=== PATIENT | male | born 1955 | race Caucasian/White ===

== ENCOUNTER → 2021-07-22 14:47 | Outpatient (BNVA) | payer MEDICARE, SELFPAY | PROVIDERS: PCP Internal Medicine; Visit Provider Counselor Mental Health | DX: F43.20 Adjustment disorder, unspecified (principal) | CPT/HCPCS: 90837; 90834 ==

== ENCOUNTER → 2021-08-12 13:00 | Outpatient (BNVA) | payer MEDICARE, SELFPAY | PROVIDERS: PCP Internal Medicine; Visit Provider Counselor Mental Health | DX: F43.20 Adjustment disorder, unspecified (principal) | CPT/HCPCS: 90834 ==

== ENCOUNTER → 2021-08-21 09:36 | Outpatient (BNVA) | payer MEDICARE, SELFPAY | PROVIDERS: PCP Internal Medicine; Visit Provider Counselor Mental Health | DX: F43.20 Adjustment disorder, unspecified (principal) | CPT/HCPCS: 90834 ==

== ENCOUNTER 2021-08-27 15:40 | Outpatient (CLI) | payer MEDICARE, SELFPAY ==
--- NOTE | 2021-08-27 19:28 | ECG_ITS ---
[facility] Test Date: 2021-08-27 Pat Name: Jozef Brambila Department: Room: Gender: Male Teaching Young: : 1955 Requested By: Jade Arias Order Number: [id number] Juan Pablo MD: Brennan Núñez M.D. Measurements Intervals [place] Rate: 74 P: 50 MN: 136 QRS: 20 QRSD: 82 T: 44 QT: 351 QTc: 391 Interpretive Statements SINUS RHYTHM No previous ECG available for comparison Electronically Signed On 08-28-2021 22:32:21 CDT by Brennan Núñez M.D. [id number]
== END 2021-08-27 15:41 | disposition home or self-care (01) ==
LOC: RAD 15:44
PROVIDERS: PCP Internal Medicine; Visit Provider Internal Medicine
DX: R00.2 Palpitations (principal)
CPT/HCPCS: 93005

== ENCOUNTER → 2021-09-05 13:42 | Outpatient (BNVA) | payer MEDICARE, SELFPAY | PROVIDERS: PCP Internal Medicine; Visit Provider Internal Medicine Cardiovascular Disease | DX: R00.2 Palpitations (principal); R00.0 Tachycardia, unspecified; I49.3 Ventricular premature depolarization | CPT/HCPCS: 93242 ==

== ENCOUNTER → 2023-01-30 14:21 | Outpatient (BNVA) | payer OTHER, SELFPAY | PROVIDERS: PCP Family Medicine; Visit Provider Family Medicine | DX: I10 Essential (primary) hypertension (principal); R30.0 Dysuria; Z12.5 Encounter for screening for malignant neoplasm of prostate; Z12.11 Encounter for screening for malignant neoplasm of colon; F41.9 Anxiety disorder, unspecified; F32.0 Major depressive disorder, single episode, mild; H02.883 Meibomian gland dysfunction of right eye, unspecified eyelid; K57.90 Diverticulosis of intestine, part unspecified, without perforation or abscess without bleeding | CPT/HCPCS: 80053; 80061; 81000; 84153; 84439; 84443; 85025 ==

== ENCOUNTER 2023-04-17 06:21 | Day surgery (SDC) | payer MEDICARE, SELFPAY ==
[2023-04-17] VITALS (7 sets, daily range): BP systolic 156–187; BP diastolic 98–110; PULSE 65–99; RESP 16–18; TEMP 36.1–36.3; O2SAT 94–98; BMI 27.1
[2023-04-17] MEDS: sodium chloride 0.9% 1,000 ML 30 ML IV (06:47)
--- NOTE | 2023-04-17 07:25 | ANES.PREANE2 ---
Pre-Anesthetic Assessment Height/Weight: Height 1.75 m Weight 83.461 kg Temp Pulse Resp BP Pulse Ox O2 Del Method 97.3 F L 97 16 156/102 98 Room Air 04/17/23 06:38 04/17/23 06:38 04/17/23 06:38 04/17/23 06:38 04/17/23 06:38 04/17/23 06:38 Preop Diagnosis: screening Operation Date: 04/17/23 07:30 Proposed Procedures p [id number] colon, G0121 screen colon A risk Z12.11(Not Applicable) - Barrett Rendon DO Familial anesthetic complications: none Was Beta Óscar taken within 24 hours: N/A Was Clonidine taken within 24 hours: N/A Last intake: Intake Last Liquid Date 04/16/23 Last Liquid Time 23:00 Last Solid Date 04/15/23 Last Solid Time 11:00 Social No alcohol and No tobacco Exam alert, oriented x 3, clear to auscultation bilaterally and regular rate & rhythm Airway Submandibular: within normal limits Cervical ROM: within normal limits Mallampati: Class I Dentition: full Pulmonary None reported CV/HEM None reported None reported Hepatic None reported GI Gastroesophageal Reflux Disease (controlled) Metabolic None reported Musc/skel None reported Neuropsych Anxiety Anesthetic Plan ASA status: 2 Anesthesia: MAC Risk of > 500 ml blood loss (7ml/kg in children): No Medications/Allergies Home Medications Medication Instructions Recorded Confirmed Last Taken Type difluprednate 0.05 % eye drops 1 drp ophthalmic (eye) BID #5 mL 03/14/21 04/15/23 04/14/23 Rx (Durezol) hydrocortisone-pramoxine 2.5 %-1 % 1 applic topical DAILY PRN 08/12/21 04/15/23 Unknown Rx (4g) rectal cream hemorrhoids #4 grams clobetasol 0.05 % topical cream 1 applic topical DAILY #30 grams 03/13/22 04/15/23 Unknown Rx tobramycin 0.3 %-dexamethasone 0.1 1 drp ophthalmic (eye) QID #5 mL 03/06/23 04/15/23 03/25/23 Rx % eye drops,suspension peg 3350-electrolytes 236 240 ml PO Q10M #4,000 mL 04/06/23 04/15/23 Unknown Rx gram-22.74 gram-6.74 gram-5.86 gram solution (Golytely) zolpidem 10 mg tablet (Ambien) 10 mg PO ONCE #30 tabs 04/08/23 04/15/23 04/13/23 Rx alprazolam 1 mg tablet 1 mg PO QID PRN anxiety #120 tabs 04/09/23 04/17/23 04/17/23 Rx Allergies Allergy/AdvReac Type Severity Reaction Status Date / Time neomycin Allergy Intermediate unknown Verified 02/04/23 14:42 Current Medications Generic Name Dose Route Start Last Admin Trade Name Freq PRN Reason Stop Dose Admin Sodium Chloride 1,000 mls @ 30 mls/hr 04/17/23 06:30 04/17/23 06:47 Sodium Chloride 0.9% IV 04/18/23 06:29 30 mls/hr .Q24H ELVIE Administration PFSH Anesthesia Medical History Cataract Diverticulitis Diverticulosis MGD (meibomian gland disease) Surgical History History of tonsillectomy Hx of inguinal hernia surgery Family History Brother Cancer prostate Other Hyperlipidemia Lung disease Denies family history of Diabetes CAD (coronary artery disease) Clotting disorder Dementia Psychiatric illness Chronic kidney disease (CKD) Anesthesia complication Bleeding disorder Hypertension Stroke Social History Smoking and tobacco/nicotine status: never used tobacco/nicotine Alcohol intake: current Alcohol intake frequency: holidays/special occasions only Substance/Drug Use: never Lives independently: Yes Marital status: / service: No Current occupational status: employed Current occupation: Pharmacist Special jacky needs: No Agree to transfusion: Yes Data Anesthesia Cardiac Studies: Holter Monitor 09/05/21
--- NOTE | 2023-04-17 07:26 | P.HP_ITS ---
Providers/Chief Complaint Primary Care Provider: Bryn Hobbs MD Chief Complaint: Z12.11 History of Present Illness Jozef Díaz is a 68 year old male Review of Systems General: Reports: 10 or more systems reviewed and unremarkable except in HPI and below Medications/Allergies Home Medications Medication Instructions Recorded Confirmed Last Taken Type difluprednate 0.05 % eye drops 1 drp ophthalmic (eye) BID #5 mL 03/14/21 04/15/23 04/14/23 Rx (Durezol) hydrocortisone-pramoxine 2.5 %-1 % 1 applic topical DAILY PRN 08/12/21 04/15/23 Unknown Rx (4g) rectal cream hemorrhoids #4 grams clobetasol 0.05 % topical cream 1 applic topical DAILY #30 grams 03/13/22 1 06/16/22 Unknown Rx tobramycin 0.3 %-dexamethasone 0.1 1 drp ophthalmic (eye) QID #5 mL 03/06/23 04/15/23 03/25/23 Rx % eye drops,suspension peg 3350-electrolytes 236 240 ml PO Q10M #4,000 mL 04/06/23 04/15/23 Unknown Rx gram-22.74 gram-6.74 gram-5.86 gram solution (Golytely) zolpidem 10 mg tablet (Ambien) 10 mg PO ONCE #30 tabs 04/08/23 04/15/23 04/13/23 Rx alprazolam 1 mg tablet 1 mg PO QID PRN anxiety #120 tabs 04/09/23 04/17/23 04/17/23 Rx Allergies Allergy/AdvReac Type Severity Reaction Status Date / Time neomycin Allergy Intermediate unknown Verified 02/04/23 14:42 PFSH Acute PFSH: Medical History (Updated 04/08/23 @ 19:48 by Bryn Hobbs MD) Diverticulitis Cataract Diverticulosis MGD (meibomian gland disease) Surgical History (Updated 04/17/23 @ 07:26 by Barrett Rendon DO) Hx of colonoscopy 2016, 1 benign polyp History of tonsillectomy Hx of inguinal hernia surgery Family History Brother Cancer prostate Other Hyperlipidemia Lung disease Denies family history of Diabetes CAD (coronary artery disease) Clotting disorder Dementia Psychiatric illness Chronic kidney disease (CKD) Anesthesia complication Bleeding disorder Hypertension Stroke Social History Smoking and tobacco/nicotine status: never used tobacco/nicotine Alcohol intake: current Alcohol intake frequency: holidays/special occasions only Substance/Drug Use: never Lives independently: Yes Marital status: / service: No Current occupational status: employed Current occupation: Pharmacist Special jacky needs: No Agree to transfusion: Yes Vitals/I&O/Wt Last Vital Signs Temp 97.3 F L 04/17/23 06:38 Pulse 97 04/17/23 06:38 Resp 16 04/17/23 06:38 BP 156/102 04/17/23 06:38 Pulse Ox 98 04/17/23 06:38 O2 Del Method Room Air 04/17/23 06:38 Weight last 48 hrs Weight 184 lb A&P Assessment and plan (1) Encounter for screening for malignant neoplasm of colon: Plan Colonoscopy Attestations Medical Necessity Statement*: Home Coding Level of Care Code Acute Code for Chg Fwd Diagnoses Encounter for screening for malignant neoplasm of colon Z12.11
--- NOTE | 2023-04-17 09:39 | PC.NURSE ---
Upon waking pt c/o inability to speak out loud and spoke at a whisper. RUDY Caldwell administered Decadron 8mg IVP. Pt did have posterior and anterior expiratory wheezing in upper lobe, however anesthesia did not feel he had aspirated during or after procedure. Dr. Fair consulted with pt and felt discharge is appropriate. Informed pt if he were to have fever or symptoms do not improve to call or see . Pt voiced understanding and appreciation.
--- NOTE | 2023-04-17 14:45 | ANE.PACU2 ---
Inpatient post-anesthesia follow up: Airway intact: Yes Vital signs: Temperature 97 F Pulse Rate 98 Respiratory Rate 18 Blood Pressure 165/99 Pulse Oximetry 98 Oxygen Delivery Me thod Room Air Oxygen Flow Rate Fraction of Inspir ed Oxygen Hydration adequate: Yes Nausea and vomiting: No Pain level: 2 Mental status: Baseline Additional Comments: Patient concerned about laryngitis/aspiration post procedure, no evidence of such, discussed with patient.
== END 2023-04-17 09:45 | disposition home or self-care (01) ==
PROVIDERS: PCP Family Medicine; Visit Provider Surgery
PROC: 0DJD8ZZ Inspection of Lower Intestinal Tract, Via Natural or Artificial Opening Endoscopic (ICD-10-PCS; CPT 45378; principal; 2023-04-17 07:30)
DX: Z12.11 Encounter for screening for malignant neoplasm of colon (principal); K57.30 Diverticulosis of large intestine without perforation or abscess without bleeding; K64.8 Other hemorrhoids; K21.9 Gastro-esophageal reflux disease without esophagitis
CPT/HCPCS: G0121; J1100; J2704; J7030

== ENCOUNTER → 2024-04-13 10:44 | Outpatient (BNVA) | payer MEDICARE, SELFPAY | PROVIDERS: PCP Family Medicine; Visit Provider Family Medicine | DX: I10 Essential (primary) hypertension (principal); N40.0 Benign prostatic hyperplasia without lower urinary tract symptoms | CPT/HCPCS: 80053; 80061; 81000; 84153; 85025 ==

== ENCOUNTER → 2025-02-22 10:01 | Outpatient (BNVA) | payer MEDICARE, SELFPAY | PROVIDERS: PCP Family Medicine; Visit Provider Family Medicine | DX: Z13.6 Encounter for screening for cardiovascular disorders (principal) | CPT/HCPCS: 80053; 80061; 81000; 84439; 84443; 85025 ==

== ENCOUNTER → 2025-04-17 14:40 | Outpatient (BNVA) | payer MEDICARE, SELFPAY | PROVIDERS: PCP Family Medicine; Visit Provider Family Medicine | DX: E78.5 Hyperlipidemia, unspecified (principal) | CPT/HCPCS: 80053; 80061 ==

== ENCOUNTER 2025-04-25 11:57 | Outpatient (CLI) | payer MEDICARE, SELFPAY ==
[2025-04-25] MEDS: iohexol 350 mg/mL 500 mL Btl (per mL) PO (12:56)
--- NOTE | 2025-04-25 13:30 | CT_ITS ---
WS: [id number] CT ABDOMEN AND PELVIS WITH CONTRAST HISTORY: concern for diverticulitis TECHNIQUE: Imaging performed of the abdomen and pelvis with IV contrast. Single phase imaging of the abdomen. Coronal and sagittal reformats are submitted. All CT scans at [facility] use at least one of these dose optimization techniques: automated exposure control; mA and/or kV adjustment per patient size (includes targeted exams where dose is matched to clinical indication); or iterative reconstruction. IV CONTRAST: Omnipaque 350; 100 mL IV. Oral contrast: Yes. DLP: 608.55 mGy.cm COMPARISON: None available. Lower thorax: Linear atelectasis or scar at the lung bases. Heart is normal size. Small hiatal hernia. Liver/biliary system: Normal size with no intrahepatic dilatation. Gallbladder: Normal. No gallstones or wall thickening. No pericholecystic fluid. Pancreas: Normal size pancreas and pancreatic duct. No adjacent inflammation. Spleen: Normal size spleen. No mass or infarct. Adrenal glands: Normal. Right kidney: Normal. Left kidney: No obstruction. Too small to characterize subcortical hypodensities in the superior pole. No obstruction of the kidney. Aorta: Mild atherosclerosis with no aneurysm. Lymphadenopathy: None. Free fluid: None. GI tract: Normally distended stomach. No small bowel obstruction. Normal appendix. Diverticular disease beginning in this transverse colon and increasing towards the sigmoid. Mild narrowing of the lumen in the distal colon. There are numerous diverticula but no CT evidence for diverticulitis at this time. No abscess or perforation. Abdominal wall: Fat containing umbilical hernia. Pelvis: Normal urinary bladder. No free fluid or adenopathy. Bones: Lumbar spondylosis. Mild narrowing of the hip joints. CT/CT abdomen pelvis w con* [id number] IMPRESSION: 1. Diverticulosis without evidence for acute diverticulitis. 2. Moderate diverticular burden in the sigmoid colon. 3. Fat-containing umbilical hernia. 4. No free fluid or free air. 5. Small hiatal hernia. 6. No renal obstruction.
== END 2025-04-25 11:58 | disposition home or self-care (01) ==
LOC: RAD 11:59
PROVIDERS: PCP Family Medicine; Visit Provider Family Medicine
DX: R10.31 Right lower quadrant pain (principal); K57.30 Diverticulosis of large intestine without perforation or abscess without bleeding; K57.32 Diverticulitis of large intestine without perforation or abscess without bleeding; K42.9 Umbilical hernia without obstruction or gangrene
CPT/HCPCS: 74177